=== PATIENT | female | born 1975 | race American Indian/Alaskan Native ===

== ENCOUNTER 2020-07-15 14:01 | Outpatient (CLI) | payer OTHER ==
--- NOTE | 2020-07-15 17:21 | Mammography Report ---
BILATERAL DIGITAL DIAGNOSTIC MAMMOGRAM WITH CAD , 07/15/2020 RIGHT LIMITED BREAST ULTRASOUND CLINICAL INFORMATION / INDICATION: Right breast palpable lump TECHNIQUE: Digital bilateral mammographic imaging was performed. Spot compression views were obtained . Limited ultrasound was performed. This examination was interpreted with the benefit of Computer-Aid ed Detection (CAD) analysis. COMPARISON: This is the patient's first mammogram. FINDINGS: Breast Density: The breasts are heterogeneously dense, which may obscure small masses. MAMMOGRAPHIC FINDINGS: No dominant mass, suspicious calcifications, or architectural distortion in th e left breast. There is a 2.5 cm round mass in the 9:00 position of the right breast, anterior depth. There is clus tered calcifications associated with the mass. This mass corresponds to the palpable lump. ULTRASOUND FINDINGS: Targeted ultrasound evaluation was performed of the area of interest. Sonograp hic evaluation of the palpable lump at 9:00, right breast, demonstrates a mostly cystic mass with wel l-circumscribed borders measuring 2.3 cm in diameter. The mass is located 2 cm from nipple. There are 2 areas of clustered calcification in the wall of this cyst. Therefore, further evaluation with diag nostic aspiration and possible core biopsy is recommended. There are a few small simple cysts in the adjacent parenchyma. IMPRESSION: There is a 2.3 cm complex cyst in the right breast at 9:00 corresponding to the palpable lump. The mass is predominantly cystic but there are 2 areas of clustered calcifications in the wall of the mass. I would recommend diagnostic aspiration of this cyst with possible core biopsy of one of the clusters of calcifications. Follow up recommendation: Right breast aspiration with possible core biopsy BI-RADS Category 4: Suspicious for Malignancy. A "normal" or negative report should not discourage follow up or biopsy of a clinically significant f inding. A written summary of these findings will be mailed to the patient. The patient will be entered into a mammography reporting system which will generate a reminder letter for the patient's next appointmen t at the appropriate interval. According to the [employer], yearly mammograms are recommended starting at age 40 and continuing as long as a woman is in good health. Breast MRI is recommended for women with an stephanie roximately 20-25% or greater lifetime risk of breast cancer, including women with a strong family his tory of breast or ovarian cancer and women who have been treated for Hodgkin's disease. Signer Name: Roxana Jernigan MD Signed: 07/15/2020 5:17 PM Workstation Name: [id number]
== END 2020-07-15 14:02 | disposition home or self-care (01) ==
LOC: MAMMO 14:01
PROVIDERS: ATTEND Obstetrics & Gynecology
DX: N60.01 Solitary cyst of right breast (principal); R92.1 Mammographic calcification found on diagnostic imaging of breast; N63.11 Unspecified lump in the right breast, upper outer quadrant
CPT/HCPCS: 77066

== ENCOUNTER 2020-08-26 13:03 | Outpatient (CLI) | payer OTHER ==
--- NOTE | 2020-08-26 15:19 | Ultrasound Report ---
ULTRASOUND GUIDED RIGHT BREAST BIOPSY, 08/26/2020 CLINICAL INFORMATION / INDICATION: MICROCALCIFICATIONS OF BREAST/CYSTIC /DENSE BREAST TISSUE. Patient presents for right breast ultrasound-guided biopsy. COMPARISON: Mammogram and right breast ultrasound 07/15/2020 PROCEDURE: Risks, benefits, and indications to the procedure were discussed with the patient in detail, includin g bleeding, infection, hematoma formation, and inadequate tissue sampling. The patient agreed to proc eed with both verbal and written consent. A timeout procedure was performed with two patient identifi ers. The breast was prepped and draped in the usual sterile fashion. Lidocaine 1% with and without epineph rine were used for local anesthesia. Under direct ultrasound guidance, multiple core samples were obt ained of the complicated cyst in the right breast 9:00 position located 2 cm from the nipple. Specifi jim, a portion of the mural calcifications was targeted for sampling.. The lesion decreased in size but did not completely resolved following biopsy. A biopsy marker was then placed. Biopsy device was removed and hemostasis achieved with manual pressure. A sterile dressing was applied to the skin. The patient tolerated the procedure without difficulty. No complications were encountered. Postbiopsy instructions were discussed with the patient and given in writing. Specimens were sent to pathology. IMPRESSION: 1. Technically successful ultrasound guided right breast biopsy. Biopsy results are pending and will be reported in an addendum. Signer Name: Juany Mora MD Signed: 08/26/2020 3:14 PM Workstation Name: [id number]
--- NOTE | 2020-08-26 15:22 | Mammography Report ---
DIGITAL DIAGNOSTIC MAMMOGRAM WITH CAD CONVENTIONAL, 08/26/2020 CLINICAL INFORMATION / INDICATION: Postbiopsy mammogram following right breast ultrasound-guided biop sy. S/P BX/CLIP TECHNIQUE: Digital right mammographic imaging was performed. This examination was interpreted with the benefit of Computer-aided Detection analysis. COMPARISON: Prior mammogram 07/15/2020 FINDINGS: Breast Density: The breasts are heterogeneously dense, which may obscure small masses. Postbiopsy mammogram reveals a biopsy clip appropriately positioned at site of previously described c omplicated cyst in the 9:00 position of the right breast, anterior depth. The lesion has significantl y decreased in size following biopsy, and it appears that a portion of the calcifications have been s ampled. IMPRESSION: 1. Appropriately positioned biopsy clip following right breast ultrasound-guided biopsy. The lesion h as significantly decreased in size, and it appears that a portion of the calcifications have been luis pled. Follow up recommendation: No recall. Post biopsy imaging. A "normal" or negative report should not discourage follow up or biopsy of a clinically significant f inding. A written summary of these findings will be mailed to the patient. The patient will be entered into a mammography reporting system which will generate a reminder letter for the patient's next appointmen t at the appropriate interval. According to the [employer], yearly mammograms are recommended starting at age 40 and continuing as long as a woman is in good health. Breast MRI is recommended for women with an stephanie roximately 20-25% or greater lifetime risk of breast cancer, including women with a strong family his tory of breast or ovarian cancer and women who have been treated for Hodgkin's disease. Signer Name: Juany Mora MD Signed: 08/26/2020 3:18 PM Workstation Name: [id number]
== END 2020-08-26 13:04 | disposition home or self-care (01) ==
LOC: SPVWC 13:03
PROVIDERS: ATTEND Obstetrics & Gynecology
DX: R92.0 Mammographic microcalcification found on diagnostic imaging of breast (principal); N60.11 Diffuse cystic mastopathy of right breast; N64.89 Other specified disorders of breast
CPT/HCPCS: 88305; 88342